=== PATIENT | female | born 1955 | race Caucasian/White ===

== ENCOUNTER 2019-02-02 12:06 | Emergency (ER) | payer MEDICARE, OTHER ==
[~2019-02-02] VITALS: Ht 165.1 cm; Wt 83.0 kg
[2019-02-02 12:08] VITALS: BP 148/76
[2019-02-02] MEDS ORDERED: DIPH,PERTUSS(ACELL),TET VAC/PF 0.5 ML IM-VACC ONE ×2 (12:30→12:34)
[2019-02-02] MEDS ORDERED: LIDOCAINE-MPF 1%, 5ML INFIL ONE (12:30)
[2019-02-02] MEDS ORDERED: LIDOCAINE-MPF 1%, 5ML ONE (12:34)
--- NOTE | 2019-02-02 12:39 | NUR ---
PT HERE FOR RIGHT INDEX FINGER LACERATION, PT WAS WASHIGN HER KNIFE WHEN SHE CUT HERSELF. PT GIVEN TEATNUS BOOSTER.
--- NOTE | 2019-02-02 13:05 | NUR ---
Patient/Caregiver given discharge instructions and they have confirmed that they understand the instructions. Patient ambulatory with steady gait.
== END 2019-02-02 13:32 | disposition home or self-care (01) ==
LOC: ED 13:09
DX: S61.210A Laceration without foreign body of right index finger without damage to nail, initial encounter (principal); W20.8XXA Other cause of strike by thrown, projected or falling object, initial encounter; Y93.89 Activity, other specified; Y92.69 Other specified industrial and construction area as the place of occurrence of the external cause; Y99.8 Other external cause status
CPT/HCPCS: 64450; 90471; 90715